=== PATIENT | female | born 1940 | race Caucasian/White ===

== ENCOUNTER → 2018-07-18 | Outpatient (CLI) | payer MEDICARE ==
[~2018-07-18] MED LIST: IOHEXOL-350 50ML VIAL IV ONE
== END | disposition home or self-care (01) ==
LOC: OIH 10:00
PROVIDERS: ATTEND Internal Medicine
DX: K57.30 Diverticulosis of large intestine without perforation or abscess without bleeding (principal); M41.85 Other forms of scoliosis, thoracolumbar region; N28.1 Cyst of kidney, acquired
CPT/HCPCS: 74178; Q9967

== ENCOUNTER 2019-07-02 02:14 | Emergency (ER) | payer MEDICARE ==
[2019-07-02] MEDS ORDERED: AZITHROMYCIN 250 MG TABLET PO ONE (02:52)
[2019-07-02] MEDS ORDERED: ACETAMINOPHEN EXTRA STRENGTH 500 MG TABLET ONE (02:52)
== END 2019-07-02 03:26 | disposition home or self-care (01) ==
LOC: EDH 02:14
DX: H66.91 Otitis media, unspecified, right ear (principal); F03.90 Unspecified dementia, unspecified severity, without behavioral disturbance, psychotic disturbance, mood disturbance, and anxiety
CPT/HCPCS: 87804